=== PATIENT | male | born 1960 | race Two or more races ===

== ENCOUNTER 2020-02-27 17:36 | Inpatient (IN) | payer OTHER ==
[~2020-02-27] VITALS: Ht 160 cm; Wt 59.9 kg
--- NOTE | 2020-02-27 17:50 | NUR ---
BIBRA FROM HOME TO ER BED 5. AAOX4. NOT IN RESP DISTRESS. BROUGHT IN W/ C/O ADOMINAL PAIN. 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 PT RATES IS PAIN 10/10. ADOMINAL TENDERNESS UPON PALPATION. PT WAS REPORTED TO HAVE SBP IN THE 70s. EMS GAVE PT 1 L NS VIA IV. PT IS NOW 122/89 DURING ASSESSMENT. PT ADMITS TO DRINKING ALCOHOL. WAS AT THE BEDSIDE FOR EVAL. ORDERS RECEIVED NOTED AND CARRIED OUT.
[2020-02-27] MEDS ORDERED: ONDANSETRON HCL/PF 4 MG/2 ML VIAL ONE (17:56)
[2020-02-27] MEDS ORDERED: MORPHINE SULFATE INJ 4 MG/ML DISP.SYRIN ONE ×2 (17:57→18:47)
[2020-02-27] MEDS ORDERED: MORPHINE SULFATE INJ 2 MG/ML DISP.SYRIN IV ONE (18:00)
[2020-02-27] MEDS ORDERED: ONDANSETRON HCL/PF 4 MG/2 ML VIAL IVP ONE (18:00)
[2020-02-27] MEDS ORDERED: IV NS 0.9% 1,000 ML BAG IV ONE ×2 (18:00→19:30)
[2020-02-27 18:10] LABS: BASOPHILS % (AUTO) 0.6 % (0.0-2.0); EOSINOPHILS % (AUTO) 0.1 % (0.0-6.0); HEMATOCRIT 41 % (39-51); HEMOGLOBIN 13.8 g/dL (13.5-17.5); LYMPHOCYTES # (AUTO) 0.9 /CMM (0.8-4.8); LYMPHOCYTES % (AUTO) 12.7 % (20.0-44.0); MEAN CORPUSCULAR HGB CONC 33 g/dl (31.0-36.0); MEAN CORPUSCULAR VOLUME 104 fL (80-96); MONOCYTES # (AUTO) 0.5 /CMM (0.1-1.30); MONOCYTES % (AUTO) 7.2 % (2.0-12.0); NEUTROPHILS # (AUTO) 5.9 /CMM (1.8-8.9); NEUTROPHILS % (AUTO) 79.4 % (43.0-81.0); PLATELET COUNT (AUTO) 222 /CMM (150-450); RED BLOOD CELL COUNT(AUTO) 3.95 MIL/uL (4.5-6.0); WHITE BLOOD COUNT (AUTO) 7.4 K/uL (4.3-11.0)
[2020-02-27 18:20] LABS: CALCIUM, SERUM 7.5 mg/dL (8.5-10.1); CARBON DIOXIDE 25 mmol/L (21-32); CHLORIDE 105 mmol/L (98-107); CREATININE 0.8 mg/dL (0.6-1.3); GLUCOSE 160 mg/dL (74-106); POTASSIUM 4.2 mmol/L (3.5-5.1); SODIUM SERUM 137 mmol/L (136-145); UREA NITROGEN, BLOOD 7 mg/dL (7-18)
[2020-02-27 18:25] LABS: ALANINE AMINOTRANSFERASE 22 U/L (12-78); ALBUMIN 2.9 g/dL (3.4-5.0); ALKALINE PHOSPHATASE 77 U/L (46-116); ASPARTATE AMINOTRANSFERASE 27 U/L (15-37); BILIRUBIN,DIRECT 0.3 mg/dL (0.0-0.2); BILIRUBIN,TOTAL 1.2 mg/dL (0.2-1.0); LIPASE 54 U/L (73-393); TOTAL PROTEIN, SERUM 5.9 g/dL (6.4-8.2)
--- NOTE | 2020-02-27 18:26 | NUR ---
XRAY AT BEDSIDE
--- NOTE | 2020-02-27 18:26 | NUR ---
PT BACK FROM CT
--- NOTE | 2020-02-27 18:51 | NUR ---
PT STILL MOANING AND C/O PAIN. MD MADE AWARE. VERBAL ORDER RECEIVED TO GIVE ANOTHER DOSE OF MORPHINE 4MG IV X 1. NOTED AND CARRIED OUT
[2020-02-27] MEDS ORDERED: IV D5/0.45 NACL 1,000 ML IV PRN ×2 (19:27→22:17)
[2020-02-27] MEDS ORDERED: ONDANSETRON HCL/PF 4 MG/2 ML VIAL IVP PRN (19:30)
[2020-02-27] MEDS ORDERED: ACETAMINOPHEN 325 MG TABLET PO PRN (19:30)
[2020-02-27] MEDS ORDERED: MORPHINE SULFATE INJ 2 MG/ML DISP.SYRIN IV PRN (19:30)
[2020-02-27] MEDS ORDERED: PIPERACILLIN /TAZOBACTAM 3.375 G in IV D5W 50 ML IV ONE (19:30)
[2020-02-27] MEDS ORDERED: Z GUARD REMEDY 2 OZ OINT TP PRN (19:30)
[2020-02-27] MEDS ORDERED: PIPERACILLIN /TAZOBACTAM 3.375 G VIAL IV ONE (19:48)
--- NOTE | 2020-02-27 20:43 | NUR ---
REPROT GIVEN TO ANEUDY GONZALEZ FOR YVES
[2020-02-27 21:00] VITALS: BP 121/69
--- NOTE | 2020-02-27 21:06 | NUR ---
pt transpoerted to unit [place] with emt and rn at bedside. pt is in stable condition. nad noted during transport
--- NOTE | 2020-02-27 21:10 | NUR ---
RN ADMITTING NOTES PATIENT RECEIVED VIA GURNEY ACCOMPANIED BY ER STAFF. A/O X 4, STABLE ON RA WITH BREATHING EVEN AND UNLABORED, NO SOB NOTED. NO SIGNS ACUTE DISTRESS. COMPLAINTS OF PAIN AND DISCOMFORT ON ABDOMEN. VITALS TAKEN 121/69 HR 114 RR 20 O2SAT 95%. BELONGINGS ACCOUNTED FOR. SKIN ASSESSMENT DONE. IV LOCATED ON [facility] #16. PATIENT ORIENTED TO ROOM AND STAFF. SAFETY PRECAUTIONS IN PLACE WITH BED IN LOWEST POSITION, CALL LIGHT WITHIN REACH, BREAKS ON, SIDE RAILS UP. WILL CONTINUE TO MONITOR THROUGHOUT THE NIGHT.
[2020-02-27 21:15] VITALS: BP 121/69
[2020-02-27] MEDS: METRONIDAZOLE 500MG/ NS 100ML 500 MG in PREMIX 1 EA IV SCH (21:55)
[2020-02-27] MEDS ORDERED: MORPHINE SULFATE INJ 4 MG/ML DISP.SYRIN IV PRN (23:45)
[2020-02-28] MEDS ORDERED: PIPERACILLIN /TAZOBACTAM 3.375 G in IV D5W 50 ML IV SCH ×2
[2020-02-28] MEDS: PIPERACILLIN /TAZOBACTAM 3.375 G in IV D5W 100 ML IV SCH ×3 (00:14→16:48)
[2020-02-28] MEDS: METRONIDAZOLE 500MG/ NS 100ML 500 MG in PREMIX 1 EA IV SCH ×2 (05:48→12:21)
[2020-02-28 06:26] LABS: EOSINOPHILS % (AUTO) 0.1 % (0.0-6.0); HEMATOCRIT 42 % (39-51); HEMOGLOBIN 14.2 g/dL (13.5-17.5); LYMPHOCYTES # (AUTO) 0.7 /CMM (0.8-4.8); LYMPHOCYTES % (AUTO) 6.5 % (20.0-44.0); MEAN CORPUSCULAR HGB CONC 34 g/dl (31.0-36.0); MEAN CORPUSCULAR VOLUME 102 fL (80-96); MONOCYTES # (AUTO) 0.3 /CMM (0.1-1.30); MONOCYTES % (AUTO) 3.2 % (2.0-12.0); NEUTROPHILS # (AUTO) 9.6 /CMM (1.8-8.9); NEUTROPHILS % (AUTO) 90.2 % (43.0-81.0); PLATELET COUNT (AUTO) 230 /CMM (150-450); RED BLOOD CELL COUNT(AUTO) 4.09 MIL/uL (4.5-6.0); WHITE BLOOD COUNT (AUTO) 10.7 K/uL (4.3-11.0)
[2020-02-28 06:36] LABS: ALBUMIN 2.4 g/dL (3.4-5.0); BILIRUBIN,DIRECT 0.4 mg/dL (0.0-0.2); CALCIUM, SERUM 7.2 mg/dL (8.5-10.1); CREATININE 0.9 mg/dL (0.6-1.3); MAGNESIUM 1.5 mg/dL (1.8-2.4); PHOSPHORUS 3.5 mg/dL (2.5-4.9); POTASSIUM 3.6 mmol/L (3.5-5.1); TOTAL PROTEIN, SERUM 5.6 g/dL (6.4-8.2)
[2020-02-28 06:46] LABS: THYROID STIMULATING HORMONE 0.399 uIU/mL (0.358-3.74)
--- NOTE | 2020-02-28 07:03 | NUR ---
MS RN OPENING NOTE RECEIVED PT AWAKE IN BED AT THIS TIME. AOX4. PT ABLE TO MAKE VERBALIZE NEEDS. NO SOB NOTED, NO S/S OF ANY APPARENT DISTRESS NOTED. NO C/O PAIN AT THIS TIME. RESPIRATIONS ARE EVEN AND UNLABORED WITH EQUAL RISE AND FALL IN CHEST. PT ON NPO STATUS PENDING LAPAROSCOPY APPENDECTOMY POSSIBLE OPEN. IV ACCESS NOTED IN [facility] G# 16, PATENT, INTACT AND FLUSHING WELL. FALL AND SAFETY PRECAUTION IN PLACE AND MAINTAINED AT ALL TIMES. BED IN LOWEST LOCKED POSITION, HOB ELEVATED, RAILS UP X 2, CALL LIGHT WITHIN REACH. WILL CONTINUE TO MONITOR
--- NOTE | 2020-02-28 07:04 | NUR ---
RN CLOSING NOTES PATIENT IN BED RESTING A/O X 4. STABLE ON RA WITH BREATHING EVEN AND UNLABORED, NO SOB NOTED. NO SIGNS OF ACUTE DISTRESS. SLIGHT COMPLAINTS OF PAIN AND DISCOMFORT IV LOCATED ON [facility] #16 RUNNING D5 1/2 NS @ 75 ML/HR. SAFETY PRECAUTIONS IN PLACE WITH BED IN LOWEST POSITION, CALL LIGHT WITHIN REACH, BREAKS ON, SIDE RAILS UP. PATIENT REMAINED NPO THROUGHOUT THE NIGHT. ALL NEEDS ATTENDED TO. WILL ENDORSE TO ONCOMING SHIFT ABOUT YVES.
--- NOTE | 2020-02-28 07:26 | NUR ---
RN NOTES SPOKE WITH MD ANDERSEN ON THE PHONE ABOUT UPDATE ON PATIENT. ASKED FOR ORDER FOR CONSENT FOR LAPARASCOPIC APPENDECTOMY WITH POSSIBLE OPEN. WILL ENDORSE TO AM SHIFT.
[2020-02-28 08:00] VITALS: BP 110/66
[2020-02-28] MEDS: PANTOPRAZOLE 40 MG VIAL IV SCH (08:59)
--- NOTE | 2020-02-28 09:00 | NUR ---
PT SCHEDULED FOR LAPAROSCOPY APPENDECTOMY POSSIBLE OPEN ENDORSED BY LISA OUTGOING INSPECTOR NURSE. CONSENT FOR PROCEDURE, BLOOD AND ANESTHESIA SIGNED BY PT AT THIS TIME AND FILED IN CHART. CHECK LIST DONE AND FILED IN CHART. WILL CONTINUE WITH PLAN OF CARE
[2020-02-28] MEDS: Magnesium 1GM/D5W 100ML PREMIX 100 ML IV SCH ×2 (10:02→11:05)
[2020-02-28 10:26] LABS: BAND % (MANUAL) 28 % (0.0-5.0); LYMPHOCYTES % (MANUAL) 14 % (16-48); MONOCYTES % (MANUAL) 3 % (0-11.0); NEUTROPHILS % (MANUAL) 55 (42-76)
[2020-02-28] MEDS ORDERED: MIDAZOLAM HCL 2 MG/2ML VIAL ONE (12:46)
[2020-02-28] MEDS ORDERED: HYDROMORPHONE INJ 2 MG/ML DISP.SYRIN ONE (12:46)
[2020-02-28] MEDS ORDERED: ROCURONIUM BROMIDE 50 MG/5 ML ONE (12:46)
[2020-02-28] MEDS ORDERED: GLYCOPYRROLATE 0.2 MG/ML VIAL ONE ×2 (12:46→12:47)
--- NOTE | 2020-02-28 12:49 | NUR ---
PT TRANSPORTED TO OR BY BED AT THIS TIME FOR LAPAROSCOPY APPENDECTOMY POSSIBLE OPEN. WILL CONTINUE WITH PLAN OF CARE
[2020-02-28] MEDS ORDERED: BUPIVACAINE MPF 0.5% W/EPI INJ 30 ML VIAL ONE (13:00)
[2020-02-28] MEDS ORDERED: BUPIVACAINE 0.5 % PF 150 MG/30 ML VIAL ONE (13:00)
--- NOTE | 2020-02-28 15:27 | NUR ---
PT TRANSPORTED BACK TO UNIT BY BED FROM LAPAROSCOPY APPENDECTOMY POSSIBLE OPEN. PT POST OP VS, BP 102/69, P 95, RR 18, T 98.0, SPO2 100. PT NOTED WITH TWO TAPED INCISIONS AND TOMA LANDA DRAINING RED SANGUINEOUS FLUID. WILL CONTINUE TO MONITOR
--- NOTE | 2020-02-28 15:30 | NUR ---
POST OP PICK OF ABD TAKEN AND FILED IN CHART. WILL CONTINUE TO MONITOR
[2020-02-28 16:00] VITALS: BP 102/69
--- NOTE | 2020-02-28 16:57 | NUR ---
PT'S POST OP DIET PER MD IS SOFT DIET. NURSE ADVANCED PT FROM CLEAR LIQUID TO FULL LIQUID TOLORATED. PT WILL RESUME SOFT DIET AT DINNER TIME. WILL CONTINUE TO MONITOR
--- NOTE | 2020-02-28 19:00 | NUR ---
MS RN CLOSING NOTES PT AWAKE IN BED AT THIS TIME. PT IN STABLE CONDITION THROUGHOUT SHIFT. ALL CARE, NEEDS, TREATMENT AND MEDICATION ADMINISTERED ANTICIPATED PER ORDER. TOMA LANDA CARE PROVIDED AND DRAINED 70ML SANGUINEOUS OUTPUT. FALL AND SAFETY PRECAUTION IN PLACE AND MAINTAINED AT ALL TIMES. BED IN LOWEST LOCKED POSITION, HOB ELEVATED, RAILS UP X 2, CALL LIGHT WITHIN REACH. WILL ENDORSE TO YARD HAND NURSE
[2020-02-28 20:07] VITALS: BP 90/54
--- NOTE | 2020-02-28 20:32 | NUR ---
MS/TELE/RN DURING INITIAL SHIFT ROUNDING AT 1930, RECEIVED PATIENT LYING ON BED SLEEPING, APPEAR COMFORTABLE, BREATHING EVEN AND UNLABORED, IVF INFUSING, CALL LIGHT IN REACH. WILL MONITOR.
[2020-02-28] MEDS: oxyCODONE/APAP (5/325 MG) 1 UDTAB TABLET PO PRN (22:39)
--- NOTE | 2020-02-29 01:10 | NUR ---
ANEUDY NOTES COMPLAINED OF TERRIBLE ABDOMINAL PAIN- MORPHINE 2 MG IV GIVEN ORDERED, V/S STABLE Addendum: 03/01/20 at 0142 by JOSE MCKEON RN WRONG TIME / RIGHT TIME 03/01
[2020-02-29] MEDS: PIPERACILLIN /TAZOBACTAM 3.375 G in IV D5W 100 ML IV SCH ×3 (01:44→17:24)
[2020-02-29] MEDS ORDERED: [UNRECOGNIZED DRUG - OTHER] IV ONE (01:59)
[2020-02-29] MEDS ORDERED: KCL IV ONE (01:59)
[2020-02-29] MEDS ORDERED: IV PREMIX D5 1/2NS + KCL 1,000 ML IV ONE (02:02)
[2020-02-29] MEDS: IV D5/0.45 NACL W/20 MEQ KCL 1L IV PRN ×4 (02:29→17:23)
[2020-02-29] MEDS: oxyCODONE/APAP (5/325 MG) 1 UDTAB TABLET PO PRN ×2 (05:53→13:34)
[2020-02-29 06:31] LABS: BASOPHILS % (AUTO) 0.1 % (0.0-2.0); EOSINOPHILS % (AUTO) 0.6 % (0.0-6.0); HEMATOCRIT 36 % (39-51); HEMOGLOBIN 12.2 g/dL (13.5-17.5); LYMPHOCYTES # (AUTO) 0.6 /CMM (0.8-4.8); LYMPHOCYTES % (AUTO) 4.7 % (20.0-44.0); MEAN CORPUSCULAR HGB CONC 34 g/dl (31.0-36.0); MEAN CORPUSCULAR VOLUME 103 fL (80-96); MONOCYTES # (AUTO) 0.5 /CMM (0.1-1.30); MONOCYTES % (AUTO) 3.8 % (2.0-12.0); NEUTROPHILS # (AUTO) 11.9 /CMM (1.8-8.9); NEUTROPHILS % (AUTO) 90.8 % (43.0-81.0); PLATELET COUNT (AUTO) 189 /CMM (150-450); RED BLOOD CELL COUNT(AUTO) 3.54 MIL/uL (4.5-6.0); WHITE BLOOD COUNT (AUTO) 13.1 K/uL (4.3-11.0)
--- NOTE | 2020-02-29 06:36 | NUR ---
MS/TELE/RN PATIENT IS SLEEPING AT THIS TIME, APPEAR COMFORTABLE, NO SIGNS OF DISTRESS NOTED, ALL NEEDS ATTENDED AT THIS TIME, WILL CONTINUE TO MONITOR.
[2020-02-29 07:02] LABS: ALBUMIN 2.2 g/dL (3.4-5.0); BILIRUBIN,TOTAL 0.8 mg/dL (0.2-1.0); CALCIUM, SERUM 7.5 mg/dL (8.5-10.1); MAGNESIUM 2.4 mg/dL (1.8-2.4); POTASSIUM 3.7 mmol/L (3.5-5.1); TOTAL PROTEIN, SERUM 5.8 g/dL (6.4-8.2)
--- NOTE | 2020-02-29 07:16 | NUR ---
MS RN NOTES PATIENT IN BED ALERT ORIENTED X 4. NO ACUTE DISTRESS NOTED. BREATHING UNLABORED. NO SOB NOTED. IV ACCESS PATENT AND INTACT, NO REDNESS, NO BLEEDING, NO SWELLING NOTED. ABDOMINAL SURGERY DRESSING CLEAN DRY AND INTACT. TOMA DRAIN INTACT. SAFETY MEASURES IN PLACE. CALL LIGHT WITHIN REACH. WILL CONTINUE TO MONITOR ACCORDINGLY.
[2020-02-29 08:00] VITALS: BP 105/64
[2020-02-29] MEDS: PANTOPRAZOLE 40 MG VIAL IV SCH (09:17)
[2020-02-29] MEDS ORDERED: NEUTRA PHOS 1 POWD.PACKET PO ONE (13:30)
[2020-02-29 16:00] VITALS: BP 115/73
--- NOTE | 2020-02-29 18:53 | NUR ---
MS RN NOTES PATIENT IN BED ALERT ORIENTED X 4. NO ACUTE DISTRESS NOTED. BREATHING UNLABORED. NO SOB NOTED. IV ACCESS PATENT AND INTACT, NO REDNESS, NO BLEEDING, NO SWELLING NOTED. ABDOMINAL SURGERY DRESSING CLEAN DRY AND INTACT. TOMA DRAIN INTACT, DRAINING SEROSANGUINEOUS 50 ML OUTPUT. NEEDS ATTENDED AND ANTICIPATED. SAFETY MEASURES IN PLACE. CALL LIGHT WITHIN REACH. WILL ENDORSE TO NIGHT NURSE FOR CONTINUITY OF CARE.
[2020-02-29 20:00] VITALS: BP 123/84
--- NOTE | 2020-02-29 20:00 | NUR ---
RN NOTES RECEIVED PT. AWAKE ON BED, A/OX4, SURGICAL SITE DRY AND INTACT, TOMA DRAINAGE IN PLACE DRAINING SEROSANGUINOUS, COMPALINED OF P[AIN, WILL CHECK IF PAIN MEDICATION IS DUE, EXPLAINED TO THE PATIENT AND PT. UNDERSTOOD, CALL LIGHT WITHIN REACH, [id number], WILL CONTINUE TO MONITOR
--- NOTE | 2020-02-29 20:20 | NUR ---
RN NOTES COMPLAINED OF ABDOMINAL PAIN- PERCOCET WAS GIVEN BUT PT. COMPLAINED HE CAN'T SWALLOW THE PILL AND FEELING NAUSEOUS. ZOFRNA 4MG IV GIVEN FOR NAUSEOUS, AND MORPHINE 2 MG IV GIVEN ORDERED FOR ABDOMINAL PAIN, V/S STABLE
[2020-02-29] MEDS: MORPHINE SULFATE INJ 2 MG/ML DISP.SYRIN IV PRN (20:21)
[2020-03-01] MEDS: PIPERACILLIN /TAZOBACTAM 3.375 G in IV D5W 100 ML IV SCH ×3 (00:56→17:04)
[2020-03-01] MEDS: MORPHINE SULFATE INJ 2 MG/ML DISP.SYRIN IV PRN ×3 (01:09→19:32)
--- NOTE | 2020-03-01 01:10 | NUR ---
RN NOTES COMPLAINED OF TERRIBLE PAIN- MORPHINE 2 MG IV GIVEN ORDERED, V/S STABLE
[2020-03-01] MEDS: oxyCODONE/APAP (5/325 MG) 1 UDTAB TABLET PO PRN (04:46)
--- NOTE | 2020-03-01 04:46 | NUR ---
RN NOTES COMPLAINED OF ABDOMINAL PAIN- PERCOCET 1 TAB PO GIVEN ORDERED, V/S STABLE
--- NOTE | 2020-03-01 06:22 | NUR ---
RN NOTES SLEEPING BUT AROUSABLE, EDUCATE THE PATIENT THAT HE NEEDS TO START WALKING , HE NEEDS TO WALK SLOWLY, NOT IN DISTRESS DRESSING DRY AND INTACT, TOMA DRAINAGE IN PLACE , [id number], PT. NEEDS ATTENDED
[2020-03-01 06:27] LABS: BASOPHILS % (AUTO) 0.1 % (0.0-2.0); EOSINOPHILS % (AUTO) 0.2 % (0.0-6.0); HEMATOCRIT 40 % (39-51); HEMOGLOBIN 13.4 g/dL (13.5-17.5); LYMPHOCYTES # (AUTO) 0.4 /CMM (0.8-4.8); LYMPHOCYTES % (AUTO) 2.6 % (20.0-44.0); MEAN CORPUSCULAR HGB CONC 34 g/dl (31.0-36.0); MEAN CORPUSCULAR VOLUME 102 fL (80-96); MONOCYTES # (AUTO) 0.8 /CMM (0.1-1.30); MONOCYTES % (AUTO) 5.4 % (2.0-12.0); NEUTROPHILS # (AUTO) 13.2 /CMM (1.8-8.9); NEUTROPHILS % (AUTO) 91.7 % (43.0-81.0); PLATELET COUNT (AUTO) 213 /CMM (150-450); RED BLOOD CELL COUNT(AUTO) 3.92 MIL/uL (4.5-6.0); WHITE BLOOD COUNT (AUTO) 14.4 K/uL (4.3-11.0)
[2020-03-01 06:48] LABS: CALCIUM, SERUM 8.4 mg/dL (8.5-10.1); CREATININE 0.8 mg/dL (0.6-1.3); MAGNESIUM 2.3 mg/dL (1.8-2.4); PHOSPHORUS 3.3 mg/dL (2.5-4.9); POTASSIUM 4.1 mmol/L (3.5-5.1)
--- NOTE | 2020-03-01 07:34 | NUR ---
MS RN OPENING NOTES BEDSIDE ENDORSEMENT DONE. PATIENT IS SEEN IN BED, AWAKE AND VERBALLY RESPONSIVE, A/O X4. BREATHING EVEN AND UNLABORED, TOLERATING ROOM AIR. NO ACUTE DISTRESS NOTED AND NO COMPLAINT OF PAIN AT THIS TIME. IV ACCESS ON SE[facility] INTACT AND PATENT. TOMA DRAIN IS INTACT AND DRAINING SEROSANGUINEOUS FLUID; DRESSING C/D/I. FALL PRECAUTIONS IN PLACE: BED ON LOWEST AND LOCKED POSITION, SR UP X2, AND CALL LIGHT W/IN REACH. ASSISTED PATIENT TO THE BATHROOM PER PATIENT'S REQUEST. WILL MONITOR ACCORDINGLY.
[2020-03-01 08:00] VITALS: BP 132/80
[2020-03-01] MEDS: PANTOPRAZOLE 40 MG TABLET.DR PO SCH (09:49)
[2020-03-01 16:00] VITALS: BP 129/80
--- NOTE | 2020-03-01 18:41 | NUR ---
MS RN CLOSING NOTES PATIENT IS AWAKE AND VERBALLY RESPONSIVE, A/O X4. BREATHING EVEN AND UNLABORED, STILL TOLERATING ROOM AIR, W/ NO ACUTE DISTRESS. MORPHINE IV GIVEN AT 1452. NO COMPLAINT OF PAIN AT THIS TIME. IV ACCESS ON SE[facility] INTACT AND PATENT. TOMA DRAIN IS INTACT, COLLECTED TOTAL OF 150ML SEROSANGUINEOUS DRAINAGE DURING SHIFT. DRESSING IS C/D/I. FALL PRECAUTIONS KEPT IN PLACE: BED ON LOWEST AND LOCKED POSITION, SR UP X2, AND CALL LIGHT W/IN REACH. WILL ENDORSE TO MANAGER CASE MANAGEMENT RN FOR YVES.
--- NOTE | 2020-03-01 19:22 | NUR ---
MS RN NOTES PATIENT IN BED, AWAKE, ALERT AND ORIENTED X 4. BREATHING EVEN AND UNLABORED ON ROOM AIR. SHOWS NO SIGNS OF ACUTE PAIN, NO SIGNS ACUTE RESPIRATORY DISTRESS. LAP GABI 2 SITES WITH TOMA DRAIN SEROUS DRAINAGE. IN ON SENA 18G ITS RUNNING D5 1/2 NS WITH 20MEQ K AT 75ML/HR. SHOWS NO SIGNS OF INFILTRATION, NO REDNESS. SAFETY PRECAUTIONS IN PLACE. BED IN LOWEST POSITION, LOCKED, AND CALL LIGHT KEPT WITHIN REACH. WILL CONTINUE TO MONITOR.
--- NOTE | 2020-03-01 19:35 | NUR ---
MS RN NOTES PATIENT COMPLAINING OF PAIN 01/21. GIVEN PRN MORPHINE AT 193. VITAL SIGNS WNL. WILL CONTINUE TO MONITOR.
[2020-03-01 19:57] VITALS: BP 146/91
[2020-03-01 20:00] VITALS: BP 146/91
[2020-03-01 20:21] VITALS: BP 146/91
[2020-03-02] MEDS: PIPERACILLIN /TAZOBACTAM 3.375 G in IV D5W 100 ML IV SCH ×3 (00:52→16:02)
[2020-03-02] MEDS: IV D5/0.45 NACL W/20 MEQ KCL 1L IV PRN ×2 (03:52)
[2020-03-02 06:29] LABS: BASOPHILS % (AUTO) 0.1 % (0.0-2.0); EOSINOPHILS % (AUTO) 1.1 % (0.0-6.0); HEMATOCRIT 40 % (39-51); HEMOGLOBIN 13.5 g/dL (13.5-17.5); LYMPHOCYTES # (AUTO) 0.5 /CMM (0.8-4.8); LYMPHOCYTES % (AUTO) 4.3 % (20.0-44.0); MEAN CORPUSCULAR HGB CONC 34 g/dl (31.0-36.0); MEAN CORPUSCULAR VOLUME 101 fL (80-96); MONOCYTES # (AUTO) 1.1 /CMM (0.1-1.30); MONOCYTES % (AUTO) 9.8 % (2.0-12.0); NEUTROPHILS # (AUTO) 9.6 /CMM (1.8-8.9); NEUTROPHILS % (AUTO) 84.7 % (43.0-81.0); PLATELET COUNT (AUTO) 248 /CMM (150-450); RED BLOOD CELL COUNT(AUTO) 3.96 MIL/uL (4.5-6.0); WHITE BLOOD COUNT (AUTO) 11.4 K/uL (4.3-11.0)
--- NOTE | 2020-03-02 06:41 | NUR ---
MS RN NOTES PATIENT IN BED, ASLEEP, ALERT AND ORIENTED X 4. BREATHING EVEN AND UNLABORED ON ROOM AIR. SHOWS NO SIGNS OF ACUTE PAIN, NO SIGNS ACUTE RESPIRATORY DISTRESS. LAP GABI 2 SITES WITH TOMA DRAIN SEROUS DRAINAGE 80ML OUT. IN ON SENA 18G ITS RUNNING D5 1/2 NS WITH 20MEQ K AT 75ML/HR. SHOWS NO SIGNS OF INFILTRATION, NO REDNESS. ALL DUE MEDICATIONS GIVEN. SAFETY PRECAUTIONS IN PLACE. BED IN LOWEST POSITION, LOCKED, AND CALL LIGHT KEPT WITHIN REACH. WILL ENDORSE TO ONCOMING NURSE.
[2020-03-02 07:17] LABS: ALBUMIN 2.1 g/dL (3.4-5.0); BILIRUBIN,TOTAL 0.5 mg/dL (0.2-1.0); CALCIUM, SERUM 8.5 mg/dL (8.5-10.1); CREATININE 0.7 mg/dL (0.6-1.3); MAGNESIUM 2.1 mg/dL (1.8-2.4); PHOSPHORUS 3.5 mg/dL (2.5-4.9); POTASSIUM 3.7 mmol/L (3.5-5.1); TOTAL PROTEIN, SERUM 6.2 g/dL (6.4-8.2)
--- NOTE | 2020-03-02 07:38 | NUR ---
MS RN OPENING NOTES RECEIVED PATIENT IN BED AWAKE, A/O X 4. ABLE TO MAKE NEEDS KNOWN, DENIES PAIN OR ANY DISCOMFORTS AT THIS TIME. DR ANDERSEN CAME AND REMOVED TOMA DRAIN, NO BLEEDING NOTED AND DRY DRESSING APPLIED TO SITE. BREATHING EVEN AND UNLABORED ON ROOM AIR. LAP GABI 2 SITES WITH DRESSINGS C/D/I. IV ACCESS ON SENA 18G INTACT AND PATENT WITH IVF OF D5 1/2 NS WITH 20MEQ K AT 75ML/HR INFUSING, NO S/S OF INFILTRATIONS NOTED AT SITE. SHOWS NO SIGNS OF INFILTRATION, NO REDNESS. SAFETY PRECAUTIONS IN PLACE: BED IN LOWEST POSITION, LOCKED, AND CALL LIGHT WITHIN REACH. WILL CONTINUE TO MONITOR.
[2020-03-02 08:00] VITALS: BP 133/81
[2020-03-02] MEDS: PANTOPRAZOLE 40 MG TABLET.DR PO SCH (08:12)
[2020-03-02] MEDS ORDERED: AMOX-430 PO (12:58)
[2020-03-02] MEDS ORDERED: HYDR-4384 PO (12:58)
[2020-03-02] MEDS ORDERED: METR500T PO (12:58)
[2020-03-02 16:00] VITALS: BP 116/75
--- NOTE | 2020-03-02 18:09 | NUR ---
RN DISCHARGED NOTES PT DISCHARGED HOME IN STABLE CONDITION. A/O X4, SAME ABLE TO MAKE NEEDS KNOWN. V/S TAKEN, STABLE AND RECORDED. PHOTOS OF SURGICAL INCISION SITES IN THE ABDOMEN TAKEN AND FILED IN THE CHART. ALL BELONGINGS ACCOUNTED FOR AND FORM SIGNED. IV ACCESS ON REMOVED WITH NO BLEEDING NOTED THEN APPLIED DRY DRESSING AT SITE. NAME ARMBAND REMOVED. HEALTH TEACHINGS/DISCHARGED INSTRUCTIONS GIVEN TO PT AND HE VERBALIZED UNDERSTANDING. PRESCRIPTION FOR ORAL ANTIBIOTICS AND NORCO HANDED TO PT. PT LEFT UNIT AT 1800 VIA WHEELCHAIR ACCOMPANIED BY FRANCISCO JAVIER VASQUEZ TO A WAITING TAXI (UBER) IN FRONT OF THE LOBBY. MD AND CHARGE NURSE AWARE OF DISCHARGE.
== END 2020-03-02 17:55 | disposition home or self-care (01) | DRG 710 ==
LOC: ER 17:43 → MED 20:15
PROVIDERS: ADMIT Registered Nurse; ATTEND Hospitalist
PROC: 0DTJ4ZZ Resection of Appendix, Percutaneous Endoscopic Approach (ICD-10-PCS; principal; 2020-02-28)
DX: A41.9 Sepsis, unspecified organism (principal); R65.21 Severe sepsis with septic shock; I11.0 Hypertensive heart disease with heart failure; I50.9 Heart failure, unspecified; J18.9 Pneumonia, unspecified organism; K35.30 Acute appendicitis with localized peritonitis, without perforation or gangrene; E44.0 Moderate protein-calorie malnutrition; E83.51 Hypocalcemia; J98.11 Atelectasis; K59.00 Constipation, unspecified; N28.1 Cyst of kidney, acquired; E83.39 Other disorders of phosphorus metabolism; R73.9 Hyperglycemia, unspecified; E83.42 Hypomagnesemia; F10.21 Alcohol dependence, in remission; Z68.23 Body mass index [BMI] 23.0-23.9, adult
CPT/HCPCS: 36415; 71045-TC; 76770-TC; 80048-TC; 80053-TC; 80061-TC; 80076-TC; 83605-TC; 83690-TC; 83735-TC; 84100-TC; 84443-TC; 84484-TC; 85025-TC; 85730-TC; 86850-TC; 87040-TC; 87081-TC; A4216; C9113; C9803-CS; G0378; G0480; J0330; J1170; J1885; J2250; J2270; J2370; J2405; J2543; J2704; J2765; J3475; J3480; J3490; J7030; J7060